=== PATIENT | male | born 1980 | race Asian ===

== ENCOUNTER 2018-01-14 11:05 | Emergency (ER) | payer BC ==
[~2018-01-14] VITALS: Ht 170.2 cm; Wt 64.4 kg
[~2018-01-14 11:05] MED LIST: NOHOMEMEDICATIONS; ZOFRAN ODT4 MG PO
[2018-01-14 11:10] VITALS: BP 100/69
[2018-01-14 11:54] LABS: URINE BILIRUBIN NEGATIVE (Negative); URINE BLOOD NEGATIVE (Negative); URINE CLARITY CLEAR; URINE COLOR YELLOW; URINE GLUCOSE-RANDOM* NEGATIVE (Negative); URINE KETONES NEGATIVE (Negative); URINE LEUKOCYTES NEGATIVE (Negative); URINE NITRITE NEGATIVE (Negative); URINE PROTEIN (DIPSTICK) NEGATIVE (Negative); URINE SPECIFIC GRAVITY 1.015 (1.005-1.035); URINE UROBILINOGEN 0.2 E.U./dl (0.2-1.0)
[2018-01-14] MEDS ORDERED: IBUPROFEN 600600 M1 PO (12:04)
[2018-01-14] MEDS ORDERED: NORCO 5-325 TA1 EACH PO (12:04)
== END 2018-01-14 12:11 | disposition home or self-care (01) ==
LOC: ER 11:05
PROVIDERS: Emergency Medicine
DX: S20.212A Contusion of left front wall of thorax, initial encounter (principal); R07.81 Pleurodynia; X58.XXXA Exposure to other specified factors, initial encounter; Y93.67 Activity, basketball; Y92.89 Other specified places as the place of occurrence of the external cause; Y99.8 Other external cause status

== ENCOUNTER 2018-10-24 23:25 | Emergency (ER) | payer BC ==
[~2018-10-24] VITALS: Ht 172.7 cm; Wt 65.8 kg
[~2018-10-24 23:25] MED LIST changes: +IBUPROFEN 600600 M1 PO; +MEDROLDOSEPACK PO; +NORCO 5-325 TA1 EACH PO
[2018-10-24 23:28] VITALS: BP 110/62
== END 2018-10-25 00:36 | disposition home or self-care (01) ==
LOC: ER 23:25
DX: L24.0 Irritant contact dermatitis due to detergents (principal); L23.7 Allergic contact dermatitis due to plants, except food

== ENCOUNTER 2019-09-11 20:32 | Emergency (ER) | payer BC ==
[~2019-09-11] VITALS: Ht 170.2 cm; Wt 68.0 kg
[2019-09-11 21:35] LABS: URINE BILIRUBIN NEGATIVE (Negative); URINE BLOOD NEGATIVE (Negative); URINE CLARITY CLEAR; URINE COLOR YELLOW; URINE GLUCOSE-RANDOM* NEGATIVE (Negative); URINE KETONES 3+ (Negative); URINE LEUKOCYTES-REFLEX NEGATIVE (Negative); URINE NITRITE-REFLEX NEGATIVE (Negative); URINE PROTEIN (DIPSTICK) TRACE (Negative); URINE SPECIFIC GRAVITY >= 1.030 (1.005-1.035)
[2019-09-11 22:06] LABS: ABSOLUTE NEUTROPHILS 6.1 thou/uL (1.4-8.2); BASOPHILS 0.2 % (0.0-2.0); EOSINOPHILS 0.1 % (0.0-3.0); HEMATOCRIT 49.6 % (42.0-52.0); HEMOGLOBIN 16.5 gm/dL (14.0-18.0); LYMPHOCYTES 3.7 % (24.0-44.0); MCH 32.1 pg (26.0-34.0); MCHC 33.4 g/dL (28.0-37.0); MCV 96.2 fL (80.0-100.0); MONOCYTES 3.8 % (1.0-8.0); PLATELET COUNT 139 thou/uL (150-400); POLYS 92.2 % (36.0-66.0); RBC 5.15 mil/uL (4.50-6.00); RDW 12.3 % (10.5-14.5); WBC 6.6 thou/uL (4.0-11.0)
[2019-09-11 22:17] LABS: CALCIUM 8.6 mg/dL (8.5-10.1); CREATININE 1.3 mg/dL (0.7-1.3); POTASSIUM 3.8 mmol/L (3.5-5.1)
[2019-09-11 22:23] LABS: ALBUMIN 4.2 g/dL (3.4-5.0); TOTAL BILIRUBIN 1.7 mg/dL (<0.1-1.0); TOTAL PROTEIN 7.6 g/dL (6.4-8.2)
[2019-09-11 23:26] VITALS: BP 108/62
== END 2019-09-11 23:27 | disposition home or self-care (01) ==
LOC: ER 20:32
PROVIDERS: Physician Assistant
DX: B34.9 Viral infection, unspecified (principal)